=== PATIENT | female | born 2000 | race Caucasian/White ===

== ENCOUNTER 2020-05-13 20:50 | Emergency (ER) | payer MEDICAID ==
[~2020-05-13] VITALS: Ht 162.6 cm; Wt 68.0 kg
[2020-05-13 21:01] VITALS: BP 111/59
--- NOTE | 2020-05-13 21:01 | NUR ---
TO BED AMBULATORY
--- NOTE | 2020-05-13 21:10 | NUR ---
19 YO F BIB SELF FOR HEADACHE, DIZZINESS,LOWER BACK PAIN, FOR 2 DAYS. DENIES FEVER CHILLS @ THIS TIME. ABD SOFT NON DISTENDED. VOIDING YELLOW URINE. PAIN 8/ VSS. WILL UPDATE ERMD HX: NONE MED: NONE NKA
[2020-05-13] MEDS: KETOROLAC 60 MG/2 ML VIAL IM ONE (22:02)
--- NOTE | 2020-05-13 22:35 | NUR ---
PT AWAKE SITTING UP IN BED; C/O 12/30 BACK PAIN WILL UPDATE ERMD
[2020-05-13] MEDS: ONDANSETRON 4 MG/2 ML VIAL IVP ONE (23:24)
[2020-05-13] MEDS: MORPHINE SULFATE 4 MG/ML SYR IVP ONE (23:25)
[2020-05-13] MEDS: NACL 0.9% 1,000 ML IV ONE (23:25)
--- NOTE | 2020-05-13 23:25 | NUR ---
PT MEDICATED MS 4 AND ZOFRAN 4 IVP. WILL CONTINUE TO OBSERVE
[2020-05-13 23:51] LABS: BASOPHILS % (AUTO) 0.2 % (0.0-2.0); EOSINOPHILS # (AUTO) 0.4 K/uL (0-0.4); EOSINOPHILS % (AUTO) 4.7 % (0.0-4.0); HEMATOCRIT 35.4 % (36-48); HEMOGLOBIN 11.7 g/dL (12.0-16.0); LYMPHOCYTES # (AUTO) 2.6 K/uL (2.5-16.5); LYMPHOCYTES % (AUTO) 33.9 % (20.5-51.1); MEAN CORPUSCULAR HEMOGLOBIN 28 pg (27-31); MEAN CORPUSCULAR HGB CONC 33 g/dL (33-37); MEAN CORPUSCULAR VOLUME 84.7 fL (80-94); MONOCYTES # (AUTO) 0.5 K/uL (0.8-1.0); MONOCYTES % (AUTO) 6.1 % (1.7-9.3); NEUTROPHILS # (AUTO) 4.2 K/uL (1.8-7.7); NEUTROPHILS % (AUTO) 55.1 % (42.2-75.2); PLATELET COUNT (AUTO) 190 K/uL (140-450); RED BLOOD CELL COUNT(AUTO) 4.18 MIL/uL (4.20-5.40); RED CELL DISTRIBUTION WIDTH 13.8 % (11.6-13.7); WHITE BLOOD COUNT (AUTO) 7.6 K/uL (4.5-11.0)
[2020-05-14 00:07] LABS: ALBUMIN 3.4 g/dL (3.4-5.0); ANION GAP 7.2 (8-16); CARBON DIOXIDE 30.6 mmol/L (21-32); CREATININE 0.8 mg/dL (0.6-1.3); POTASSIUM 3.8 mmol/L (3.5-5.1); TOTAL BILIRUBIN 0.2 mg/dL (0.0-1.0)
--- NOTE | 2020-05-14 00:15 | NUR ---
PT TAKEN TO CT SCAN
--- NOTE | 2020-05-14 00:35 | NUR ---
REASSESSED PAIN; PT DENIES PAIN @ THIS TIME. WILL CONTINUE TO MONITOR
[2020-05-14 02:18] VITALS: BP 135/85
== END 2020-05-14 02:18 | disposition home or self-care (01) ==
LOC: MED 20:50
DX: S13.4XXA Sprain of ligaments of cervical spine, initial encounter (principal); R51.9 Headache, unspecified; X58.XXXA Exposure to other specified factors, initial encounter; Y93.89 Activity, other specified; Y92.89 Other specified places as the place of occurrence of the external cause; Y99.8 Other external cause status; Z20.822 Contact with and (suspected) exposure to COVID-19
CPT/HCPCS: 36415; 74176; 80053; 81002; 85025; 87426; 96372; 96374; 96375; 99285; J1885; J2270; J2405; J7030

== ENCOUNTER 2023-08-11 18:20 | Emergency (ER) | payer BC, MEDICAID ==
[~2023-08-11] VITALS: Ht 167.6 cm; Wt 95.3 kg
[2023-08-11 18:35] VITALS: BP 90/72; PULSE 75; RESP 18; TEMP 98.1; O2SAT 98
[2023-08-11] MEDS ORDERED: LIDOCAINE/EPI 1% 1:100000 20 ML VIAL INJ ONE (20:39)
[2023-08-11] MEDS: [UNRECOGNIZED DRUG - OTHER] INJ ONE (20:40)
[2023-08-11] MEDS ORDERED: IBUP-2213 PO (21:05)
[2023-08-11] MEDS ORDERED: BACI-418 TP (21:05)
[2023-08-11] MEDS ORDERED: CEPH-588 PO (21:05)
== END 2023-08-11 21:40 | disposition home or self-care (01) ==
LOC: MED 18:20
DX: S70.351A Superficial foreign body, right thigh, initial encounter (principal); Z79.899 Other long term (current) drug therapy; W45.8XXA Other foreign body or object entering through skin, initial encounter; W26.8XXA Contact with other sharp object(s), not elsewhere classified, initial encounter; Y93.89 Activity, other specified; Y92.89 Other specified places as the place of occurrence of the external cause; Y99.8 Other external cause status
CPT/HCPCS: 10120; 90471; 90715; 99285; J2001